=== PATIENT | female | born 1970 | race African-American/Black ===

== ENCOUNTER 2016-05-10 09:17 | Emergency (ER) | payer OTHER ==
[~2016-05-10] VITALS: Ht 152.4 cm; Wt 76.0 kg
[2016-05-10 09:46] LABS: HEMATOCRIT 40.5 % (36.0-46.0); MCH 34.1 PG (29.0-34.0); MCHC 34.8 G/DL (30.0-36.0); MCV 98.1 FL (83-99); MEAN PLAT.VOLUME 9.1 uM^3 (9.5-12.4); PLATELET COUNT 351 K/uL (156-360); RBC DIS.WIDTH-CV 12.4 % (11.8-14.6); RBC DIS.WIDTH-SD 42.7 % (39-53); RED BLOOD COUNT 4.13 M/uL (3.80-5.20); WHITE BLOOD COUNT 9.1 K/uL (4.1-10.2)
[2016-05-10 09:56] LABS: CHLORIDE 108 mEq/L (99-109); POTASSIUM 3.9 mEq/L (3.7-5.4); SODIUM 139 mEq/L (136-147)
[2016-05-10 09:56] LABS: ADD MIUA? NO; BILIRUBIN NEGATIVE; BLOOD NEGATIVE; COLOR YELLOW ((YELLOW)); GLUCOSE (STRIP) NEGATIVE; KETONES NEGATIVE; LEUKOCYTES NEGATIVE; NITRITE NEGATIVE; PROTEIN (STRIP) 30; SPECIFIC GRAVITY 1.029 (1.000-1.030); UCUL ADDED? NO; UROBILINOGEN 0.2 MG/DL (0.2-1.0)
[2016-05-10 09:58] LABS: GLUCOSE 102 mg/dL (70-99)
[2016-05-10 09:59] LABS: ANION GAP 10 MEQ/L (2-14)
[2016-05-10 10:00] LABS: TOTAL BILIRUBIN 0.9 mg/dL (0.0-1.0)
[2016-05-10 10:01] LABS: ALKALINE PHOSPHATASE 60 IU/L (3-129)
[2016-05-10 10:03] LABS: GFR ESTIMATE (CALCULATED) > 59 mL/min/; UREA NITROGEN (BUN) 11 mg/dL (9-23)
[2016-05-10 10:13] LABS: QUANTITATIVE HCG < 4.0 MIU/ML
[2016-05-10] MEDS ORDERED: ZOFRAN ODT4 MG PO (13:53)
[2016-05-10 14:50] VITALS: BP 118/61
== END 2016-05-10 14:52 | disposition home or self-care (01) ==
LOC: EME 09:17
DX: K52.9 Noninfective gastroenteritis and colitis, unspecified (principal); R11.2 Nausea with vomiting, unspecified; F17.200 Nicotine dependence, unspecified, uncomplicated; Z71.6 Tobacco abuse counseling
CPT/HCPCS: 80053; 81003; 84702; 85027; 99281; 99284

== ENCOUNTER 2016-06-05 21:55 | Emergency (ER) | payer OTHER ==
[~2016-06-05] VITALS: Ht 152.4 cm; Wt 81.4 kg
[~2016-06-05 21:55] MED LIST: ZOFRAN ODT4 MG PO
[2016-06-05] MEDS ORDERED: MEDROL DOSEPAK4 MG PO (23:47)
[2016-06-06] VITALS: BP 130/77
== END 2016-06-06 | disposition home or self-care (01) ==
LOC: EME 21:55
DX: M16.11 Unilateral primary osteoarthritis, right hip (principal); M54.5 Low back pain; J45.909 Unspecified asthma, uncomplicated; F17.200 Nicotine dependence, unspecified, uncomplicated
CPT/HCPCS: 72100; 73502; 99281; 99283